=== PATIENT | male | born 1990 ===

== ENCOUNTER 2019-05-27 06:47 | Day surgery (SDC) | payer MEDICAID ==
[~2019-05-27 06:47] MED LIST: ACET-2743 PO; ALPR2TAB7 PO; LACT10SO32 PO; OXCA600T18 PO; RISP1TAB26 PO; SODIUM CHLORIDE 0.9% 1000ML 1,000 ML IV ONE; TOPI100T37 PO; TRAZ150T79 PO
[2019-05-27 07:30] VITALS: BP 126/81
[2019-05-27] MEDS ORDERED: PROPOFOL 10 MG/ML 20ML VIAL IV ONE (07:49)
[2019-05-27 08:21] VITALS: BP 93/55
[2019-05-27 08:26] VITALS: BP 102/66
[2019-05-27 08:32] VITALS: BP 110/74
[2019-05-27 08:37] VITALS: BP 125/76
== END 2019-05-27 08:44 | disposition home or self-care (01) ==
LOC: DAH 06:47 → ENDO 06:47
PROVIDERS: ATTEND Internal Medicine Gastroenterology
DX: K92.2 Gastrointestinal hemorrhage, unspecified (principal); K63.5 Polyp of colon; K62.1 Rectal polyp; K59.00 Constipation, unspecified; F41.9 Anxiety disorder, unspecified; F32.9 Major depressive disorder, single episode, unspecified; G40.909 Epilepsy, unspecified, not intractable, without status epilepticus; Z98.890 Other specified postprocedural states; Z79.899 Other long term (current) drug therapy
CPT/HCPCS: 45380; A4215; A4221; A4222; A4223; A4606; A4620; A4663; J2704; J7030